=== PATIENT | male | born 1995 | race Two or more races ===

== ENCOUNTER 2018-02-19 13:56 | Emergency (ER) | payer BC ==
[2018-02-19 14:05] VITALS: BP 122/70
--- NOTE | 2018-02-19 14:07 | UC ---
Head Injury HPI - HPI Summary HPI Summary: 22 yo male presents s/p head injury. He tells me that he was playing soccer yesterday and went up for a header when another player "took out his legs" and pt landed on his right shoulder and rolled onto the left side of his head. No LOC. Kept playing and felt fine. Later that night had some mild dizziness, but went to bed. Woke up this morning and still has some mild dizziness. Denies headache, vision changes, weakness, loss of balance, tinnitus, n/v. - History Of Current Complaint Chief Complaint: UCHeadInjury Stated Complaint: HEAD INJURY Time Seen by Provider: 02/19/18 14:04 Hx Obtained From: Patient Severity Currently: Mild Severity Initially: Mild Pain Intensity: 2 Pain Scale Used: 0-10 Numeric - Allergies/Home Medications Allergies/Adverse Reactions: Allergies Allergy/AdvReac Type Severity Reaction Status Date / Time No Known Allergies Allergy Verified 02/19/18 14:05 Home Medications: Home Medications NK [No Home Medications Reported] 02/19/18 [History Confirmed 02/19/18] PMH/Surg Hx/FS Hx/Imm Hx - Additional Past Medical History Additional PMH: None Previously Healthy: Yes - Surgical History Surgical History: None - Family History Known Family History: Positive: None - Social History Occupation: Student Lives: With Family Alcohol Use: Occasionally Substance Use Type: None Smoking Status (MU): Never Smoked Tobacco - Immunization History Vaccination Up to Date: Yes Review of Systems Constitutional: Negative Skin: Negative Eyes: Negative ENT: Negative Respiratory: Negative Cardiovascular: Negative Gastrointestinal: Negative Neurovascular: Negative Musculoskeletal: Negative Neurological: Other - Dizziness Psychological: Negative All Other Systems Reviewed And Are Negative: Yes Physical Exam - Summary Physical Exam Summary: GENERAL: NAD. WDWN. No pain distress. SKIN: No abrasion, open sores, ecchymosis, or erythema. HEENT: Head: AT/NC Eyes: PERRLA. EOM intact. Conjunctiva clear without inflammation or discharge. Ears: Hearing grossly normal. TMs intact, no bulging, erythema, or edema. NECK: Supple. FROM. No vertebral tenderness. CHEST: CTAB. No r/r/w. No accessory muscle use. Breathing comfortably and in no distress. CV: RRR. Without m/r/g. Pulses intact. Brisk cap refill. MSK: FROM in B/L UEs and LEs with symmetric strength. NEURO: A&Ox3. 3 word recall, remote, recent memory, ability to follow 2-step directions, and attention intact. CN II XII grossly intact. [id number] are intact. Gait with normal base. Romberg: maintains balance, no pronator drift. Normal speech. No facial drooping. PSYCH: Age appropriate behavior. Triage Information Reviewed: Yes Vital Signs: Initial Vital Signs Temp 98.6 F 02/19/18 14:02 Pulse 78 02/19/18 14:02 Resp 18 02/19/18 14:02 BP 122/70 02/19/18 14:02 Pulse Ox 100 02/19/18 14:02 Vital Signs Reviewed: Yes Head Injury Course/Dx - Course Course Of Treatment: Low impact head injury in an otherwise health young adult male. Possible very mild concussion. Advised to monitor his symptoms and to refrain from physical activity until feeling better. If symptoms worsen or persist to f/u. - Differential Dx/Diagnosis Provider Diagnoses: Head injury Discharge - Sign-Out/Discharge Documenting (check all that apply): Patient Departure - Discharge Plan Condition: Stable Disposition: HOME Patient Education Materials: Sports Concussion (ED) Referrals: Jonathon Schwarz MD [Primary Care Provider] - Additional Instructions: If you develop a fever, shortness of breath, chest pain, new or worsening symptoms - please call your PCP or go to the ED. Your blood pressure was high at todays visit. Please see your primary provider within 4 weeks for recheck and re-evaluation. - Billing Disposition and Condition Condition: STABLE Disposition: Home
== END 2018-02-19 14:15 | disposition home or self-care (01) ==
LOC: UCEAST 13:56
DX: S09.90XA Unspecified injury of head, initial encounter (principal); W03.XXXA Other fall on same level due to collision with another person, initial encounter; Y93.66 Activity, soccer; Y92.9 Unspecified place or not applicable
CPT/HCPCS: 99211; G0463